=== PATIENT | female | born 1990 | race Caucasian/White ===

== ENCOUNTER 2019-10-18 11:49 | Emergency (ER) | payer OTHER ==
[~2019-10-18] VITALS: Ht 170.2 cm; Wt 108.4 kg
[2019-10-18 11:59] VITALS: BP 138/53
[2019-10-18] MEDS ORDERED: PROM118S9 PO (12:09)
[2019-10-18] MEDS ORDERED: ONDA4TAB7 PO (12:09)
[2019-10-18] MEDS ORDERED: ALBU2.5V8 IH (12:09)
[2019-10-18] MEDS ORDERED: AZIT250T6 PO (12:09)
--- NOTE | 2019-10-18 12:09 | PHYS DOC ---
Past History Past Medical History: No Pertinent History Past Surgical History: No Surgical History Smoking: Non-smoker Alcohol Use: None Drug Use: None Adult General Chief Complaint Chief Complaint: COUGH HPI HPI Patient is a 28-year-old female presents with cough, nasal congestion, body aches and chills for the past 2 weeks. She has not seen her primary care physician for this. She has an appointment on October 25. She has had minimal relief with lvbl-hnz-elmdxac medicines to include Mucinex and DayQuil. No recent travel. Occasional vomiting and diarrhea present as well. Patient is concerned now because she has 4 children coming to live with her. Supine position makes nasal drainage and cough worse. No significant relief as noted with current medication. Symptoms are moderate in intensity. No production of the cough. No hemoptysis.[] Review of Systems Review of Systems Constitutional: See history of present illness[] Eyes: Denies change in visual acuity, redness, or eye pain [] HENT: See history of present illness[] Respiratory: See history of present illness[] Cardiovascular: No chest pain or palpitations[] GI: Denies abdominal pain, nausea, vomiting, bloody stools or diarrhea [] : Denies dysuria or hematuria [] Musculoskeletal: Denies back pain or joint pain [] Integument: Denies rash or skin lesions [] Neurologic: Denies headache, focal weakness or sensory changes [] Endocrine: Denies polyuria or polydipsia [] All other systems were reviewed and found to be within normal limits, except as documented in this note. Allergies Allergies Allergies Coded Allergies Type Severity Reaction Last Updated Verified No Known Drug Allergies 10/18/19 No Physical Exam Physical Exam Constitutional: Well developed, well nourished, no acute distress, non-toxic appearance. [] HENT: Normocephalic, atraumatic, bilateral external ears normal, oropharynx moist, no oral exudates, nose nose with clear rhinorrhea[] Eyes: PERRLA, EOMI, conjunctiva normal, no discharge. [] Neck: Normal range of motion, no tenderness, supple, no stridor. [] Cardiovascular:Heart rate regular rhythm, no murmur [] Lungs & Thorax: Bilateral breath sounds clear to auscultation [] Abdomen: Bowel sounds normal, soft, no tenderness, no masses, no pulsatile masses. [] Skin: Warm, dry, no erythema, no rash. [] Back: No tenderness, no CVA tenderness. [] Extremities: No tenderness, no cyanosis, no clubbing, ROM intact, no edema. [] Neurologic: Alert and oriented X 3, normal motor function, normal sensory function, no focal deficits noted. [] Psychologic: Affect normal, judgement normal, mood normal. [] EKG EKG [] Radiology/Procedures Radiology/Procedures [] Course & Med Decision Making Course & Med Decision Making Pertinent Labs and Imaging studies reviewed. (See chart for details) Medical decision making: This may be a flu syndrome, however patient is well beyond timeframe for Tamiflu 70 not checking for the flu since diagnosis would not change treatment. We will treat with symptomatic and supportive care. No evidence of hypoxia. No evidence of oral intake intolerance. Emergency department course: Patient arrived, was placed in bed, and tolerated exam well. Findings and plan were discussed with patient who voiced understanding. All questions were answered. She was discharged in improved condition.[] Dragon Disclaimer Dragon Disclaimer This electronic medical record was generated, in whole or in part, using a voice recognition dictation system. Departure Departure: Impression: Primary Impression: Cough Disposition: HOME, SELF-CARE Condition: IMPROVED Referrals: EMETERIO WEI MD (PCP) Follow-up as scheduled Patient Instructions: Cough, Adult Additional Instructions: Drink plenty fluids. Follow-up with your regular doctor as scheduled. Return to the emergency department if difficulty breathing, blood in what you're coughing up, or any other concerns. Scripts Azithromycin (AZITHROMYCIN TABLET) 250 Mg Tablet 1 PKG PO UD for cough for 5 Days, #6 TAB 0 Refills 2 the first day followed by 1 for days 2-5 Prov: ASUNCION CLARK DO 10/18/19 Ondansetron Hcl (ZOFRAN) 4 Mg Tablet 1 TAB PO Q6HRS for nausea or vomiting, #20 TAB Prov: ASUNCION CLARK DO 10/18/19 D-Methorphan Hb/Prometh Hcl (PROMETHAZINE-DM SYRUP) 118 Ml Syrup 5 ML PO PRN Q4HRS for CONGESTION, #120 ML Prov: ASUNCION CLARK DO 10/18/19 Albuterol Sulfate (VENTOLIN HFA INHALER) 18 Gm Hfa.aer.ad 2 PUFF IH PRN Q4HRS PRN for COUGH, #1 INHALER 0 Refills Prov: ASUNCION CLARK DO 10/18/19 ASUNCION CLARK DO Oct 18, 2019 12:09
== END 2019-10-18 12:12 | disposition home or self-care (01) ==
LOC: ER 11:49
DX: R05 Cough (principal); R09.81 Nasal congestion; M79.10 Myalgia, unspecified site; R11.10 Vomiting, unspecified; R19.7 Diarrhea, unspecified
CPT/HCPCS: 99283

== ENCOUNTER → 2020-03-12 | Outpatient (CLI) | payer OTHER ==
[~2020-03-12] MED LIST: ALBU2.5V8 IH; AZIT250T6 PO; ONDA4TAB7 PO; PROM118S9 PO; SINCALIDE 2.2 MCG in IV NORMAL SALINE 50ML 30 ML IV ONE
--- NOTE | 2020-03-12 08:25 | RAD ---
ABDOMEN LTD History: Nausea and vomiting Comparison: None. Findings: Multiple sonographic images of the abdomen are submitted. Exam is limited due to bowel gas and patient's body habitus. Inferior vena cava and pancreas are obscured. Right kidney is poorly visualized, estimated about 9.9 x 4.9 x 4 cm without hydronephrosis. Gallbladder is present, no demonstrable wall thickening, intraluminal abnormality, or pericholecystic fluid. There is some coarsening of the hepatic echotexture, no focal hepatic lesion demonstrated. Right lobe of the liver measured 14.6 cm longitudinal. Impression: 1. Other than likely hepatic steatosis, no significant abnormality is demonstrated although midline structures are not well visualized due to bowel gas and patient's body habitus. Electronically signed by: Onel Morgan MD (03/12/2020 8:22 AM) [id number]
--- NOTE | 2020-03-12 11:18 | RAD ---
INDICATION: Abdomen pain. COMPARISON: Ultrasound earlier same day TECHNIQUE: 5.5mCi of Tc99m Choletec was injected intravenously followed by scintigraphic images of the abdomen. 2.2 mcg of CCK was then injected and a gallbladder ejection fraction was calculated. FINDINGS: Appropriate radiotracer clearance from the blood pool. Appropriate radiotracer excretion into the biliary tree. Prompt passage of contrast into the small bowel. Visualization of the gallbladder prior to the 60 minute time point. Gallbladder ejection fraction is 89 percent. IMPRESSION: 1. No scintigraphic evidence of acute cholecystitis or high grade biliary obstruction. 2. No evidence of biliary dyskinesia. Electronically signed by: Oliver Perkins MD (03/12/2020 11:15 AM) [id number]
== END | disposition home or self-care (01) ==
LOC: US 06:41
PROVIDERS: ATTEND Internal Medicine Gastroenterology
DX: R11.2 Nausea with vomiting, unspecified (principal)
CPT/HCPCS: 76705; 78227; A9537; J2805

== ENCOUNTER → 2020-03-27 | Outpatient (CLI) | payer OTHER ==
[~2020-03-27] MED LIST changes: -SINCALIDE 2.2 MCG in IV NORMAL SALINE 50ML 30 ML IV ONE
--- NOTE | 2020-03-27 15:58 | RAD ---
Gastric Emptying Study Indication: Reason: ABDOMINAL PAIN NAUSEA VOMITING Procedure: Anterior and posterior projection static images are obtained over the stomach following oral administration of 2 mCi of 99 M technetium sulfur colloid in a solid meal (egg and toast). Time points include an immediate baseline, and 1, 2, 3, and 4 hours post ingestion. Findings: There is progressive emptying of the stomach on sequential images. Percentage retention at... One hour is 90% (normal 34.8-91%). Two hours 64% (normal 2.7-60%). Three hours 40% (normal 0.5-28%). Four hours 15% (normal 0-10%). Impression: Delayed gastric emptying at all time points. Consensus Recommendations for Gastric Emptying Scintigraphy: A Joint Report of the [place] [employer] and the Society of Nuclear Medicine: J. Nucl. Med. Technol. December 2007 vol. 36 no. 1 44-54 Grading for severity of delayed GE based on the 4-h value: grade 1 (mild): 11?20% retention at 4 h grade 2 (moderate): 21?35% retention at 4 h grade 3 (severe): 36?50% retention at 4 h grade 4 (very severe): >50% retention at 4 h. Electronically signed by: Edgar Marin MD (03/27/2020 3:54 PM) [id number]
== END | disposition home or self-care (01) ==
LOC: NM 09:01
PROVIDERS: ATTEND Internal Medicine Gastroenterology
DX: K30 Functional dyspepsia (principal); R11.2 Nausea with vomiting, unspecified
CPT/HCPCS: 78264; A9541

== ENCOUNTER 2020-07-21 21:05 | Emergency (ER) | payer OTHER ==
[~2020-07-21] VITALS: Ht 160 cm; Wt 113.4 kg
[~2020-07-21 21:05] MED LIST changes: +PROM118S10 PO; -PROM118S9 PO
[2020-07-21 21:16] VITALS: BP 144/84
--- NOTE | 2020-07-21 21:40 | PHYS DOC ---
Past History Past Medical History: Other Additional Past Medical Histor: GASTROPORESIS Past Surgical History: Cholecystectomy Smoking: Non-smoker Alcohol Use: None Drug Use: None General Adult EDM: Chief Complaint: SHOULDER INJURY HPI: HPI: Patient is a 29-year-old female who presented to ER today for evaluation of right-sided shoulder pain that been going on for 2 days. Patient denies any chest pain, no trouble breathing, no injury. Patient denies any abdominal pain, no nausea vomiting. Patient denies any cough, no fever. Patient complains of pain in her shoulder whenever she moves her right shoulder. Review of Systems: Review of Systems: Constitutional: Denies fever or chills Eyes: Denies change in visual acuity HENT: Denies nasal congestion or sore throat Respiratory: Denies cough or shortness of breath Cardiovascular: Denies chest pain or edema GI: Denies abdominal pain, nausea, vomiting, bloody stools or diarrhea : Denies dysuria Musculoskeletal: Positive for right shoulder pain Integument: Denies rash Neurologic: Denies headache, focal weakness or sensory changes Endocrine: Denies polyuria or polydipsia Lymphatic: Denies swollen glands Psychiatric: Denies depression or anxiety Heart Score: Risk Factors: Risk Factors: DM, Current or recent (<one month) smoker, HTN, HLP, family history of CAD, obesity. Risk Scores: Score 0 - 3: 2.5% MACE over next 6 weeks - Discharge Home Score 4 - 6: 20.3% MACE over next 6 weeks - Admit for Clinical Observation Score 7 - 10: 72.7% MACE over next 6 weeks - Early Invasive Strategies Allergies: Allergies: Allergies Coded Allergies Type Severity Reaction Last Updated Verified No Known Drug Allergies 10/18/19 No Physical Exam: PE: Constitutional: Well developed, well nourished, no acute distress, non-toxic appearance. [] HENT: Normocephalic, atraumatic, bilateral external ears normal, oropharynx moist, no oral exudates, nose normal. [] Eyes: PERRLA, EOMI, conjunctiva normal, no discharge. [] Neck: Normal range of motion, no tenderness, supple, no stridor. [] Cardiovascular:Heart rate regular rhythm, no murmur [] Lungs & Thorax: Bilateral breath sounds clear to auscultation [] Abdomen: Bowel sounds normal, soft, no tenderness, no masses, no pulsatile masses. [] Skin: Warm, dry, no erythema, no rash. [] Back: No tenderness, no CVA tenderness. [] Extremities: There is no swelling on her right shoulder, there is no redness, no contusion, there is full range of motion of her right shoulder. There is subjective tenderness to palpation over the right shoulder. Neurologic: Alert and oriented X 3, normal motor function, normal sensory func tion, no focal deficits noted. [] Psychologic: Affect normal, judgement normal, mood normal. [] Current Patient Data: Vital Signs: Vital Signs Date Time Temp Pulse Resp B/P (MAP) Pulse Ox O2 Delivery O2 Flow Rate FiO2 07/21/20 21:16 97.8 69 18 144/84 (104) 97 Room Air EKG: EKG: [] Radiology/Procedures: Radiology/Procedures: [][place] [address] IMAGING REPORT Signed PATIENT: TY FISCHER ACCOUNT: [id number] : 1990 LOCATION: ER AGE: 29 SEX: F EXAM STATUS: REG ER ORD. PHYSICIAN: COLLIN SANTOS DO REASON: RIGHT SHOULDER PAIN, X 2 DAYS, NO KNOWN INJURY PROCEDURE: SHOULDER 2+V RIGHT Exam: Right shoulder 3 views INDICATION: Right shoulder pain for 2 days TECHNIQUE: Frontal view of the right shoulder with internal and external rotation and transscapular Y views. Comparisons: None FINDINGS: Bone mineralization is normal. No acute or healed fractures. Soft tissues are unremarkable. Joint spaces are well-maintained. IMPRESSION: No acute osseous abnormality. Electronically signed by: Cee Bravo MD (07/21/2020 9:54 PM) [id number] DICTATED AND SIGNED BY: CEE BRAVO MD DATE: 07/21/20 2154 CC: COLLIN SANTOS DO; EMETERIO WEI MD ~ Course & Med Decision Making: Course & Med Decision Making Pertinent Labs and Imaging studies reviewed. (See chart for details) [] Dragon Disclaimer: Dragon Disclaimer: This electronic medical record was generated, in whole or in part, using a voice recognition dictation system. Departure Departure: Impression: Primary Impression: Right shoulder pain Disposition: HOME/RESIDENCE PRIOR TO ADM Condition: STABLE Referrals: EMETERIO WEI MD (PCP) PLEASE FOLLOW UP WITH YOUR DOCTOR NEXT WEEK FOR REEVALUATION. Patient Instructions: Shoulder Pain Additional Instructions: I thank you for visiting our Emergency Department. We appreciate you trusting us with your care. If any additional problems come up don't hesitate to return to visit us. Please follow up with your primary care provider so they can plan additional care if needed and know about the problem that you had. If symptoms worsen come back to the Emergency Department. Any concerning symptoms that start such as chest pain, shortness of air, weakness or numbness on one side of the body, running high fevers or any other concerning symptoms return to the ER. Scripts Acetaminophen (ACETAMINOPHEN) 500 Mg Tablet 2 TAB PO PRN Q6HRS PRN for PAIN for 7 Days, #20 TAB 0 Refills Prov: COLLIN SANTOS DO 07/21/20 Justification of Admission: Justification of Admission: Justification of Admission Dx: N/A COLLIN SANTOS DO Jul 21, 2020 21:40
[2020-07-21] MEDS ORDERED: ACET500T68 PO (21:54)
--- NOTE | 2020-07-21 21:57 | RAD ---
Exam: Right shoulder 3 views INDICATION: Right shoulder pain for 2 days TECHNIQUE: Frontal view of the right shoulder with internal and external rotation and transscapular Y views. Comparisons: None FINDINGS: Bone mineralization is normal. No acute or healed fractures. Soft tissues are unremarkable. Joint spaces are well-maintained. IMPRESSION: No acute osseous abnormality. Electronically signed by: Cee Lawrence MD (07/21/2020 9:54 PM) [id number]
== END 2020-07-21 22:05 | disposition home or self-care (01) ==
LOC: ER 21:05
DX: M25.511 Pain in right shoulder (principal)
CPT/HCPCS: 73030; 99283

== ENCOUNTER 2021-03-09 14:32 | Emergency (ER) | payer OTHER ==
[~2021-03-09] VITALS: Ht 160 cm; Wt 111.0 kg
[~2021-03-09 14:32] MED LIST changes: +ACET500T68 PO
--- NOTE | 2021-03-09 14:57 | EKG ---
[address] [address] Test Date: 2021-03-09 Test Time: 14:40:34 Pat Name: TY SEE Department: Room: Gender: F Cost Accountant: DESTINEE : 1990 Requested By: FILI WHIPPLE Order Number: [id number] Reading MD: Measurements Intervals [place] Rate: 92 P: 22 KS: 122 QRS: 23 QRSD: 76 T: 10 QT: 348 QTc: 435 Interpretive Statements SINUS RHYTHM NORMAL ECG RI6.02 No previous ECG available for comparison
--- NOTE | 2021-03-09 15:11 | PHYS DOC ---
Past History Past Medical History: Anxiety, Depression, Other Additional Past Medical Histor: GASTROPORESIS, boarderline personality, PTSD Past Surgical History: Cholecystectomy Smoking: Non-smoker Alcohol Use: None Drug Use: None General Adult EDM: Chief Complaint: CHEST PAIN HPI: HPI: 30-year-old female presents with chest pain/epigastric pain. She states that it started 2 days ago. Is has been intermittent and sharp in character. It is currently 7 out of 10. No shortness of breath or diaphoresis. She decided to come to the emergency room because it is worse today. She states that nothing seems to make it worse but a hot shower or squeezing on it seems to make it better. She had her gallbladder out less than a year ago. Denies alcohol consumption. She has no history of cardiac disease. She denies fever or chills. Review of Systems: Review of Systems: Constitutional: Denies fever or chills Eyes: Denies change in visual acuity HENT: Denies nasal congestion or sore throat Respiratory: Denies cough or shortness of breath Cardiovascular: Chest pain GI: Epigastric abdominal pain. denies nausea, vomiting, bloody stools or diarr hea : Denies dysuria Musculoskeletal: Denies back pain or joint pain Integument: Denies rash Neurologic: Denies headache, focal weakness or sensory changes Endocrine: Denies polyuria or polydipsia Lymphatic: Denies swollen glands Psychiatric: Denies depression or anxiety Allergies: Allergies: Allergies Coded Allergies Type Severity Reaction Last Updated Verified No Known Drug Allergies 10/18/19 No Physical Exam: PE: Constitutional: Well developed, well nourished, morbidly obese, no acute distress, non-toxic appearance. [] HENT: Normocephalic, atraumatic, bilateral external ears normal, oropharynx moist, no oral exudates, nose normal. [] Eyes: PERRLA, EOMI, conjunctiva normal, no discharge. [] Neck: Normal range of motion, no tenderness, supple, no stridor. [] Cardiovascular: Heart rate 92, regular rhythm, no murmur [] Lungs & Thorax: Bilateral breath sounds clear to auscultation [] Abdomen: Bowel sounds normal, soft, moderate epigastric tenderness, no masses, no pulsatile masses. [] Skin: Warm, dry, no erythema, no rash. [] Back: No tenderness, no CVA tenderness. [] Extremities: No tenderness, no cyanosis, no clubbing, ROM intact, no edema. [] Neurologic: Alert and oriented X 3, normal motor function, normal sensory function, no focal deficits noted. [] Psychologic: Affect normal, judgement normal, mood normal. [] Current Patient Data: Vital Signs: Vital Signs Date Time Temp Pulse Resp B/P (MAP) Pulse Ox O2 Delivery O2 Flow Rate FiO2 03/09/21 14:40 98 20 145/89 (107) 99 Room Air EKG: EKG: [] Radiology/Procedures: Radiology/Procedures: [] Impressions: AP portable chest radiograph 03/09/2021 Clinical History: Chest pain. An AP erect portable digital radiograph of the chest was obtained. The cardiac and mediastinal silhouettes are within normal limits in size and configuration. No pulmonary infiltrate is seen. No pleural effusion or pneumothorax is noted. The osseous structures are grossly intact. IMPRESSION: No acute abnormality is seen. Electronically signed by: Adán Gómez MD (03/09/2021 3:50 PM) [id number] DICTATED AND SIGNED BY: ADÁN GÓMEZ MD DATE: 03/09/21 1549 CC: FILI WHIPPLE DO; EMETERIO WEI MD ~MTH0 0 Heart Score: C/O Chest Pain: Yes HEART Score for Chest Pain: HEART Score for Chest Pain Response (Comments) Value History Slighlty/Non-Suspicious 0 ECG Normal 0 Age < 45 0 Risk Factors 1 or 2 Risk Factors 1 Troponin < Normal Limit 0 Total 1 Risk Factors: Risk Factors: DM, Current or recent (<one month) smoker, HTN, HLP, family history of CAD, obesity. Risk Scores: Score 0 - 3: 2.5% MACE over next 6 weeks - Discharge Home Score 4 - 6: 20.3% MACE over next 6 weeks - Admit for Clinical Observation Score 7 - 10: 72.7% MACE over next 6 weeks - Early Invasive Strategies Course & Med Decision Making: Course & Med Decision Making Pertinent Labs and Imaging studies reviewed. (See chart for details) The patient's EKG is unremarkable. Her pain seems to be epigastric in nature. I have ordered GI cocktail, Pepcid IV and Toradol IV. Troponin is negative. The patient's labs are unremarkable. Her urinalysis suggest urinary tract infection with moderate bacteria. I will treat her with Macrobid for 5 days. The GI cocktail made the patient feel much better. I have advised that she take a proton pump inhibitor for the next 14 days to help calm down her GERD symptoms and heal any possible erosions. She states verbal understanding. She is stable for discharge at this time. [] Dragon Disclaimer: Dragon Disclaimer: This electronic medical record was generated, in whole or in part, using a voice recognition dictation system. Departure Departure: Impression: Primary Impression: UTI (urinary tract infection) Qualified Codes: N30.01 - Acute cystitis with hematuria Additional Impression: GERD (gastroesophageal reflux disease) Qualified Codes: K21.00 - Gastro-esophageal reflux disease with esophagitis, without bleeding Disposition: HOME / SELF CARE / HOMELESS Condition: STABLE Referrals: EMETERIO WEI MD (PCP) Patient Instructions: Gastroesophageal Reflux Disease, Adult, [id number], Urinary Tract Infection, [id number] Additional Instructions: You should consider taking a proton pump inhibitor such as Nexium or omeprazole for 14 days to help with your esophagus symptoms. Scripts Nitrofurantoin Monohyd/M-Cryst (MACROBID 100 MG CAPSULE) 100 Mg Capsule 1 CAP PO BID for UTI for 5 Days, #10 CAP 0 Refills Prov: FILI WHIPPLE DO 03/09/21 FILI WHIPPLE DO March 09, 2021 15:10
[2021-03-09] MEDS ORDERED: FAMOTIDINE 20 MG/2 ML VIAL IVP ONE (15:15)
[2021-03-09] MEDS ORDERED: KETOROLAC 30 MG/ML VIAL. IVP ONE (15:15)
[2021-03-09] MEDS ORDERED: LIDO:MAALOX 1:1 20 ML SINGLE DOSE. PO ONE (15:15)
[2021-03-09 15:37] LABS: CALCIUM 8.7 mg/dL (8.5-10.1); CREATININE 0.9 mg/dL (0.6-1.0); GFR 74.6; POTASSIUM 3.6 mmol/L (3.5-5.1)
[2021-03-09 15:42] LABS: BASO % 0 % (0-3); EOS # 0.1 x10^3/uL (0.0-0.7); EOS % 1 % (0-3); HEMOGLOBIN 10.8 g/dL (12.0-15.5); LYMPH # 2.2 x10^3/uL (1.0-4.8); LYMPH % 23 % (24-48); MEAN CORPUSCULAR HEMOGLOBIN 26 pg (25-35); MEAN CORPUSCULAR HGB CONC 33 g/dL (31-37); MEAN CORPUSCULAR VOLUME 80 fL (79-100); MONO # 0.7 x10^3/uL (0.0-1.1); MONO % 7 % (0-9); NEUT # 6.3 x10^3uL (1.8-7.7); NEUT % 68 % (31-73); PLATELET COUNT 307 x10^3/uL (140-400); RED BLOOD COUNT 4.13 x10^6/uL (3.50-5.40); RED CELL DISTRIBUTION WIDTH 15.9 % (11.5-14.5); WHITE BLOOD COUNT 9.3 x10^3/uL (4.0-11.0)
[2021-03-09 15:43] LABS: ALBUMIN 3.1 g/dL (3.4-5.0); TOTAL BILIRUBIN 0.3 mg/dL (0.2-1.0); TOTAL PROTEIN 6.3 g/dL (6.4-8.2)
--- NOTE | 2021-03-09 15:53 | RAD ---
AP portable chest radiograph 03/09/2021 Clinical History: Chest pain. An AP erect portable digital radiograph of the chest was obtained. The cardiac and mediastinal silhouettes are within normal limits in size and configuration. No pulmon per infiltrate is seen. No pleural effusion or pneumothorax is noted. The osseous structures are amadou sly intact. IMPRESSION: No acute abnormality is seen. Electronically signed by: Adán Carolina MD (03/09/2021 3:50 PM) [id number]
[2021-03-09 16:59] LABS: BACTERIA,URINE MOD /HPF (0-FEW); BILIRUBIN,URINE SMALL (NEG); CLARITY,URINE CLOUDY; COLOR,URINE AMBER; GLUCOSE,URINE NEG (NEG); NITRITE,URINE NEG (NEG); RBC,URINE 0 /HPF (0-2)
[2021-03-09 17:00] LABS: SQUAMOUS EPITHELIAL CELL,UR MANY /LPF
[2021-03-09] MEDS ORDERED: NITR100C62 PO (17:16)
[2021-03-09 17:30] VITALS: BP 133/70
== END 2021-03-09 17:30 | disposition home or self-care (01) ==
LOC: ER 14:32
DX: N39.0 Urinary tract infection, site not specified (principal); K21.9 Gastro-esophageal reflux disease without esophagitis; F41.9 Anxiety disorder, unspecified; F32.9 Major depressive disorder, single episode, unspecified; Z90.49 Acquired absence of other specified parts of digestive tract
CPT/HCPCS: 36415; 71045; 80053; 81001; 81025; 83690; 84484; 85025; 87086; 93005; 96374; 96375; 99285; J1885; J3490

== ENCOUNTER 2021-08-30 23:01 | Emergency (ER) | payer OTHER ==
[~2021-08-30] VITALS: Ht 160 cm; Wt 111.0 kg
[~2021-08-30 23:01] MED LIST changes: +NITR100C62 PO
[2021-08-31] MEDS ORDERED: IBUPROFEN 600 MG TABLET. PO ONE (00:30)
[2021-08-31] MEDS ORDERED: ACETAMINOPHEN 500 MG TABLET PO ONE (00:30)
[2021-08-31] MEDS ORDERED: IV RINGERS SOLUTION,LACTATED 1,000 ML IV ONE (00:30)
[2021-08-31 00:45] LABS: CALCIUM 9.2 mg/dL (8.5-10.1)
[2021-08-31 00:50] LABS: ALBUMIN 3.6 g/dL (3.4-5.0); ALBUMIN/GLOBULIN RATIO 1.2 (1.0-1.7); TOTAL BILIRUBIN 0.5 mg/dL (0.2-1.0); TOTAL PROTEIN 6.7 g/dL (6.4-8.2)
--- NOTE | 2021-08-31 00:56 | PHYS DOC ---
Past History Past Medical History: Anxiety, Depression, Other Additional Past Medical Histor: GASTROPORESIS, boarderline personality, PTSD Past Surgical History: Cholecystectomy, Other Additional Past Surgical Histo: CERVIX SX, ESOPHOGUS STRETCHED Smoking: Non-smoker Alcohol Use: None Drug Use: None General Adult EDM: Chief Complaint: COUGH HPI: HPI: ".. I got this cough... "and woke up with a fever, sore throat.. " " I ache and hurt all over" ..." I was fine yesterday..." Patient is a 30 year old female who presents with above hx and complaints fever, chills, malaise, cough, and pharyngitis.. Patient has gotten influenza vaccine . Patient has not gotten Covid vaccination and does not plan to do it has been unremarkable 3 years. No recent travel. No specific ill contacts. No history immunosuppression. The patient normally follows with Dr. Wei. Review of Systems: Review of Systems: Constitutional: History of fever or chills Eyes: Denies change in visual acuity HENT: History of nasal congestion or sore throat Respiratory: Denies cough or shortness of breath Cardiovascular: Denies chest pain or edema GI: Denies abdominal pain, nausea, vomiting, bloody stools or diarrhea : Denies dysuria Musculoskeletal: History of generalized malaise arthralgia myalgia Integument: Denies rash Neurologic: History of cephalgia headache,. Denies focal weakness or sensory changes Endocrine: Denies polyuria or polydipsia Lymphatic: Denies swollen glands Psychiatric: Denies depression or anxiety Family History: Family History: Noncontributory presentation Current Medications: Current Meds: Current Medications Medications (Trade) Dose Ordered Sig/Dougie Start Time Stop Time Status Last Admin Dose Admin Acetaminophen (Tylenol) 1,000 mg 1X ONCE 08/31/21 00:30 08/31/21 00:31 DC 08/31/21 00:06 1,000 MG Ibuprofen (Motrin) 600 mg 1X ONCE 08/31/21 00:30 08/31/21 00:31 DC 08/31/21 00:06 600 MG Lactated Ringer's 1,000 ml @ 1,000 mls/hr 1X ONCE 08/31/21 00:30 08/31/21 01:29 08/31/21 00:13 1,000 MLS/HR Allergies: Allergies: Allergies Coded Allergies Type Severity Reaction Last Updated Verified No Known Drug Allergies 10/18/19 No Physical Exam: PE: Constitutional: Moderate acute distress, non-toxic appearance. [] HENT: Normocephalic, atraumatic, bilateral external ears normal, oropharynx moist, no oral exudates, nose swollen turbinates clear rhinorrhea Eyes: PERRLA, EOMI, conjunctiva normal, no discharge. [] Neck: Normal range of motion, no tenderness, supple, no stridor. [] Cardiovascular: Tachycardia heart rate regular rhythm, no murmur [] Lungs & Thorax: Bilateral breath sounds equal apex with scattered wheezes and a hacking nonproductive cough. Auscultation had some crackles on lower lung deluca. Abdomen: Bowel sounds normal, soft, no tenderness, no masses, no pulsatile masses. Obese Skin: Warm, dry, no erythema, no rash. [] Back: No tenderness, no CVA tenderness. [] Extremities: No tenderness, no cyanosis, no clubbing, ROM intact, no edema. No cording Neurologic: Alert and oriented X 3, normal motor function, normal sensory function, no focal deficits noted. [] Psychologic: Affect anxious, judgement normal, mood normal. [] Current Patient Data: Labs: Laboratory Tests Test 08/31/21 00:15 08/31/21 00:16 Sodium Level 137 mmol/L (136-145) Potassium Level 4.0 mmol/L (3.5-5.1) Chloride Level 102 mmol/L (98-107) Carbon Dioxide Level 27 mmol/L (21-32) Anion Gap 8 (6-14) Blood Urea Nitrogen 10 mg/dL (7-20) Creatinine 1.0 mg/dL (0.6-1.0) Estimated GFR (Cockcroft-Gault) 66.0 BUN/Creatinine Ratio 10 (6-20) Glucose Level 100 mg/dL (70-99) H Calcium Level 9.2 mg/dL (8.5-10.1) Total Bilirubin Pending Aspartate Amino Transferase (AST) Pending Alanine Aminotransferase (ALT) Pending Alkaline Phosphatase Pending Total Protein Pending Albumin Pending Albumin/Globulin Ratio Pending SARS-CoV-2 Antigen (Rapid) Negative (NEGATIVE) Vital Signs: Vital Signs Date Time Temp Pulse Resp B/P (MAP) Pulse Ox O2 Delivery O2 Flow Rate FiO2 08/30/21 23:43 103.0 135 18 119/84 (96) 95 Room Air EKG: EKG: [] Radiology/Procedures: Radiology/Procedures: [][address] [address] IMAGING REPORT Signed PATIENT: TY FISCHER ACCOUNT: [id number] : 1990 LOCATION: ER AGE: 30 SEX: F EXAM STATUS: REG ER ORD. PHYSICIAN: ALEXX KENT MD REASON: cough fever, PROCEDURE: CHEST PA & LATERAL Chest radiograph 08/31/2021 1:02 AM INDICATION: Cough, fever COMPARISON: 03/09/2021 TECHNIQUE: Frontal and lateral views of the chest are provided. FINDINGS: The cardiomediastinal silhouette is within normal limits. There are no pleural effusions. There is no pulmonary vascular congestion. There is no pneumothorax. The lungs are clear. No significant osseous abnormality is identified. IMPRESSION: No acute cardiopulmonary process. Electronically signed by: Vikram Boateng MD (08/31/2021 1:45 AM) [facility] DICTATED AND SIGNED BY: VIKRAM BOATENG MD DATE: 08/31/21139 CC: ALEXX KENT MD; EMETERIO WEI MD ~MTH0 0 Heart Score: C/O Chest Pain: No Risk Factors: Risk Factors: DM, Current or recent (<one month) smoker, HTN, HLP, family history of CAD, obesity. Risk Scores: Score 0 - 3: 2.5% MACE over next 6 weeks - Discharge Home Score 4 - 6: 20.3% MACE over next 6 weeks - Admit for Clinical Observation Score 7 - 10: 72.7% MACE over next 6 weeks - Early Invasive Strategies Course & Med Decision Making: Course & Med Decision Making Pertinent Labs and Imaging studies reviewed. (See chart for details) Patient is self isolate. Take Tamiflu 75 mg twice a day. Take Tylenol and ibuprofen as needed for discomfort. Benadryl 50 mg at 4 times day would be helpful for congestion and drainage. Use MDI 2 puffs 4 times a day. Follow-up primary care. Reconsider her stance on Covid vaccination. Follow-up primary care. Return if any concerns. Impression: 1. Influenza A [] Rogelio Disclaimer: Rogelio Disclaimer: This electronic medical record was generated, in whole or in part, using a voice recognition dictation system. Departure Departure: Referrals: EMETERIO WEI MD (PCP) Scripts Oseltamivir Phosphate (TAMIFLU) 75 Mg Capsule 1 CAP PO BID for flu a, #10 CAP Prov: ALEXX KENT MD 08/31/21 Rogelio Disclaimer This chart was dictated in whole or in part using Voice Recognition software in a busy, high-work load, and often noisy Emergency Department environment. It may contain unintended and wholly unrecognized errors or omissions. ALEXX KENT MD Aug 31, 2021 00:56
[2021-08-31 01:30] LABS: BASO % 0 % (0-3); EOS # 0.1 x10^3/uL (0.0-0.7); EOS % 0 % (0-3); HEMATOCRIT 36.4 % (36.0-47.0); HEMOGLOBIN 11.3 g/dL (12.0-15.5); LYMPH # 1.1 x10^3/uL (1.0-4.8); LYMPH % 8 % (24-48); MEAN CORPUSCULAR HEMOGLOBIN 24 pg (25-35); MEAN CORPUSCULAR HGB CONC 31 g/dL (31-37); MEAN CORPUSCULAR VOLUME 77 fL (79-100); MONO # 0.7 x10^3/uL (0.0-1.1); MONO % 5 % (0-9); NEUT # 12.4 x10^3uL (1.8-7.7); NEUT % 87 % (31-73); PLATELET COUNT 331 x10^3/uL (140-400); RED BLOOD COUNT 4.73 x10^6/uL (3.50-5.40); RED CELL DISTRIBUTION WIDTH 16.9 % (11.5-14.5); WHITE BLOOD COUNT 14.2 x10^3/uL (4.0-11.0)
[2021-08-31] MEDS ORDERED: AZITHROMYCIN 250 MG TABLET. PO ONE (01:30)
[2021-08-31] MEDS ORDERED: predniSONE 10 MG TABLET. PO ONE (01:30)
[2021-08-31] MEDS ORDERED: ALBUTEROL SULFATE 8GM INHALER. INH ONE (01:30)
--- NOTE | 2021-08-31 01:47 | RAD ---
Chest radiograph 08/31/2021 1:02 AM INDICATION: Cough, fever COMPARISON: 03/09/2021 TECHNIQUE: Frontal and lateral views of the chest are provided. FINDINGS: The cardiomediastinal silhouette is within normal limits. There are no pleural effusions. There is no pulmonary vascular congestion. There is no pneumothorax. The lungs are clear. No significant osseous abnormality is identified. IMPRESSION: No acute cardiopulmonary process. Electronically signed by: Zayra Bhagat MD (08/31/2021 1:45 AM) [facility]
[2021-08-31 01:54] VITALS: BP 132/75
[2021-08-31 02:12] LABS: BARBITURATES NEG (NEG); BENZODIAZEPINES NEG (NEG); CANNABINOIDS POS (NEG); COCAINE NEG (NEG); METHADONE NEG (NEG); OPIATES NEG (NEG); PHENCYCLIDINE NEG (NEG)
[2021-08-31 02:14] LABS: AMPHETAMINE/METHAMPHETAMINE NEG (NEG)
[2021-08-31 02:17] LABS: BILIRUBIN,URINE NEG (NEG); CLARITY,URINE CLEAR; COLOR,URINE YELLOW; GLUCOSE,URINE NEG (NEG); NITRITE,URINE NEG (NEG); RBC,URINE 0 /HPF (0-2)
[2021-08-31 02:17] LABS: INFLUENZA B PATIENT NEGATIVE (NEGATIVE)
[2021-08-31 02:18] LABS: BACTERIA,URINE FEW /HPF (0-FEW); SQUAMOUS EPITHELIAL CELL,UR MOD /LPF
[2021-08-31 02:20] LABS: INFLUENZA A PATIENT POSITIVE (NEGATIVE)
[2021-08-31] MEDS ORDERED: OSEL75CA PO (02:28)
[2021-08-31] MEDS ORDERED: OSELTAMIVIR 75 MG CAPSULE PO ONE (02:30)
== END 2021-08-31 02:39 | disposition home or self-care (01) ==
LOC: ER 23:01
DX: J09.X2 Influenza due to identified novel influenza A virus with other respiratory manifestations (principal); Z20.822 Contact with and (suspected) exposure to COVID-19
CPT/HCPCS: 36415; 71046; 80053; 80307; 81001; 81025; 83605; 84484; 85025; 87040; 87070; 87426; 87804; 87880; 94640; 96360; 99284; C9803; J7120; J7512; U0003; 94664